=== PATIENT | male | born 1985 | race African-American/Black ===

== ENCOUNTER 2016-07-28 04:42 | Emergency (ER) | payer MEDICAID ==
[~2016-07-28] VITALS: Ht 190.5 cm; Wt 122.7 kg
[2016-07-28] MEDS ORDERED: KETOROLAC 30MG/ML VIAL IM STA (06:27)
[2016-07-28] MEDS ORDERED: FAMOTIDINE 20MG TABLET PO STA (06:27)
[2016-07-28] MEDS ORDERED: MAGNESIUM/ALUMINUM HYDROXIDE/SIMETHICONE 30ML UDC PO STA (06:27)
[2016-07-28 07:01] LABS: BASOPHILS % 1.2 % (0.0-2.0); EOSINOPHILS % 4.2 % (0.0-5.0); HEMATOCRIT. 46.7 % (42.0-52.0); HEMOGLOBIN. 15.8 g/dL (14.0-18.0); LYMPHOCYTES % 35.5 % (20.0-50.0); MEAN CORPUSCULAR HEMOGLOBIN 29.6 pg (28.0-32.0); MEAN CORPUSCULAR HGB CONC 33.7 g/dL (31.0-37.0); MEAN CORPUSCULAR VOLUME 87.6 fL (80.0-94.0); MEAN PLATELET VOLUME 7.9 fl (7.4-10.4); MONOCYTES % 7.8 % (2.0-8.0); NEUTROPHILS % 51.3 % (40.0-76.0); PLATELET 213 x1000/uL (130-400); RED BLOOD CELL COUNT 5.33 mill/uL (4.7-6.1); RED CELL DISTRIBUTION WIDTH 12.8 % (11.6-14.6); WHITE BLOOD COUNT 3.8 x1000/uL (4.5-11.0)
[2016-07-28 07:05] LABS: INR 1.1; PROTHROMBIN TIME 11.1 sec
[2016-07-28 07:10] LABS: ALANINE AMINOTRANSFERASE 37 IU/L (13-61); ALBUMIN 4.2 g/dL (3.4-5.0); ANION GAP 11; CALCIUM 9.3 mg/dL (8.5-10.1); CARBON DIOXIDE 29 mEq/L (21-32); CHLORIDE 106 mEq/L (98-107); INDEX HEMOLYSI 1 (1-3); INDEX ICTERIC 1 (1-4); INDEX LIPEMIC 1 (1-3); LIPASE 142 IU/L (73-393); UREA NITROGEN BLOOD 13 mg/dL (7-21); eGFR > 60 mL/min (>60)
[2016-07-28 07:45] VITALS: BP 121/65
== END 2016-07-28 08:14 | disposition home or self-care (01) ==
LOC: ER 06:21
DX: K21.9 Gastro-esophageal reflux disease without esophagitis (principal); E66.9 Obesity, unspecified; D72.819 Decreased white blood cell count, unspecified; Z68.33 Body mass index [BMI] 33.0-33.9, adult
CPT/HCPCS: 36415; 71010; 80053; 83690; 85025; 85610; 85730; 93005; 96372; 99285; J1885

== ENCOUNTER 2019-01-13 04:48 | Emergency (ER) | payer SELFPAY ==
[~2019-01-13] VITALS: Ht 190.5 cm; Wt 122.0 kg
[2019-01-13 06:14] VITALS: BP 124/69
== END 2019-01-13 06:18 | disposition home or self-care (01) ==
LOC: ER 04:48
DX: L50.0 Allergic urticaria (principal)
CPT/HCPCS: 99282

== ENCOUNTER 2019-01-16 03:02 | Emergency (ER) | payer SELFPAY ==
[~2019-01-16] VITALS: Ht 190.5 cm; Wt 124.0 kg
[2019-01-16 03:08] VITALS: BP 134/86
[2019-01-16 04:40] LABS: HEMATOCRIT. 45.7 % (42.0-52.0); HEMOGLOBIN. 15.3 g/dL (14.0-18.0); MEAN CORPUSCULAR HEMOGLOBIN 30.1 pg (28.0-32.0); MEAN CORPUSCULAR VOLUME 89.6 fL (80.0-94.0); RED CELL DISTRIBUTION WIDTH 12.6 % (11.6-14.6)
[2019-01-16 04:41] LABS: BASOPHILS % 1.3 % (0.0-2.0); LYMPHOCYTES % 45.4 % (20.0-50.0); MONOCYTES % 7.3 % (2.0-8.0); PLATELET 218 x1000/uL (130-400)
[2019-01-16 04:47] LABS: CHLORIDE 106 mEq/L (98-107)
== END 2019-01-16 05:39 | disposition left against medical advice (07) ==
LOC: ER 03:02
DX: R00.2 Palpitations (principal); K21.9 Gastro-esophageal reflux disease without esophagitis
CPT/HCPCS: 36415; 80048; 99283

== ENCOUNTER 2019-02-04 10:45 | Emergency (ER) | payer SELFPAY ==
[~2019-02-04] VITALS: Ht 190.5 cm; Wt 121.0 kg
[2019-02-04] MEDS: SODIUM CHLORIDE 0.9% 1,000 ML IV ONE (12:25)
[2019-02-04 12:30] LABS: BASOPHILS % 1.1 % (0.0-2.0); EOSINOPHILS % 1.2 % (0.0-5.0); HEMATOCRIT. 45.8 % (42.0-52.0); HEMOGLOBIN. 15.7 g/dL (14.0-18.0); LYMPHOCYTES % 30.5 % (20.0-50.0); MEAN CORPUSCULAR HEMOGLOBIN 30.4 pg (28.0-32.0); MEAN CORPUSCULAR VOLUME 88.6 fL (80.0-94.0); MEAN PLATELET VOLUME 7.5 fl (7.4-10.4); NEUTROPHILS % 58.2 % (40.0-76.0); PLATELET 237 x1000/uL (130-400); RED BLOOD CELL COUNT 5.17 mill/uL (4.7-6.1); RED CELL DISTRIBUTION WIDTH 12.6 % (11.6-14.6)
[2019-02-04 12:33] LABS: CHLORIDE 106 mEq/L (98-107)
[2019-02-04 14:48] VITALS: BP 126/80
== END 2019-02-04 14:49 | disposition home or self-care (01) ==
LOC: ER 12:37
DX: R42 Dizziness and giddiness (principal); R00.2 Palpitations
CPT/HCPCS: 36415; 71045; 80053; 82962; 85025; 93005; 96360; 99284; J7030; Z7610